=== PATIENT | female | born 1990 | race Two or more races ===

== ENCOUNTER 2018-05-12 21:19 | Emergency (ER) | payer MEDICAID ==
[~2018-05-12] VITALS: Ht 170.2 cm; Wt 81.6 kg
[2018-05-12 21:42] VITALS: BP 119/99
--- NOTE | 2018-05-12 21:51 | Emergency Room Report ---
History of Present Illness General Chief Complaint: Allergies Source: Patient Present Illness HPI Patient presents with hives, and itching throat and difficulty passing saliva. She also feels herself wheezing. She has a history of asthma. She never had allergy before. She was running and started developing hives and shortness of breath. She did not hear herself wheezing. No new soaps, clothes, unusual foods, travel or infectious exposure. No chest pain, fever, productive cough, sore throat. No NVD, dysuria. No dizziness. Some anxiety with symptoms. LNMP 04/13 irregular - Depo Initially she denied prior allergies, then Mom reports had allergy treatment as a child with desensitization shots. Not know what was allergic to. Allergies: Coded Allergies: TREE NUT (Verified Allergy, Unknown, 05/12/18) Patient History Past Medical History: see triage record, other - childhood allergy treatment Social History: Denies: smoking Social History Narrative with Mom Last Menstrual Period: 04/13/18 Now: No Reviewed Nursing Documentation: PMH: Agreed; PSxH: Agreed Nursing Documentation-PMH Hx Asthma: Yes Review of Systems All Other Systems: negative except mentioned in HPI Physical Exam Vital Signs Date Time Temp Pulse Resp B/P (MAP) Pulse Ox O2 Delivery O2 Flow Rate FiO2 05/12/18 21:22 98.0 88 18 119/99 98 Room Air 98.1 Sp02 EP Interpretation: reviewed, normal General Appearance: well appearing, no apparent distress, GCS 15 Head: normocephalic Eyes: bilateral eye normal inspection, bilateral eye PERRL ENT: normal pharynx, no angioedema, moist mucus membranes Neck: supple Respiratory: lungs clear, normal breath sounds Cardiovascular #1: regular rate, rhythm Cardiovascular #2: 2+ radial (R) Gastrointestinal: normal inspection, normal bowel sounds, non tender, no mass, non-distended Musculoskeletal: back normal, gait/station normal, normal range of motion, no calf tenderness Neurologic: alert, oriented x3, grossly normal Psychiatric: mood/affect normal Skin: warm/dry, other - fine hiv-like rash central Medical Decision Making Diagnostic Impression: Primary Impression: Allergic reaction Qualified Codes: T78.40XA - Allergy, unspecified, initial encounter ER Course Patient presents with itching throat, some dyspnea and skin itching. Ddx: anaphylaxis, allergic reaction, anxiety, asthma amongst others. Due to symptom complex, treating with epi IM, solumedrol and benadryl. shelter monitor. Prior allergy history during childhood. UA clear, preg neg. Improved with treatment. Discussed need for allergy testing. At this time, epi pen not indicated. Patient stable for outpatient observation and treatment. Laboratory Tests Test 05/13/18 00:03 Urine Color Pale yellow Urine Appearance Slightly cloudy Urine pH 6 (4.5-8.0) Urine Specific [place] 1.015 (1.005-1.035) Urine Protein Negative (NEGATIVE) Urine Glucose (UA) Negative (NEGATIVE) Urine Ketones Negative (NEGATIVE) Urine Occult Blood Negative (NEGATIVE) Urine Nitrite Negative (NEGATIVE) Urine Bilirubin Negative (NEGATIVE) Urine Urobilinogen Normal MG/DL (0.0-1.0) Urine Leukocyte Esterase 1+ (NEGATIVE) H Urine RBC 0-2 /HPF (0 - 2) Urine WBC 2-4 /HPF (0 - 2) Urine Squamous Epithelial Cells Many /LPF (NONE/OCC) H Urine Calcium Oxalate Crystals Many /LPF (NONE) Urine Bacteria Many /HPF (NONE) H Urine HCG, Qualitative Negative (NEGATIVE) Rhythm Strip Diag. Results EP Interpretation: yes Rhythm: NSR, no PVC's, no ectopy Last Vital Signs Date Time Temp Pulse Resp B/P (MAP) Pulse Ox O2 Delivery O2 Flow Rate FiO2 05/13/18 00:03 98.1 24 127/76 100 Room Air 21 98.1 05/12/18 22:05 88 Status: improved Disposition: HOME, SELF-CARE Condition: Improved Scripts Albuterol Sulfate* (ALBUTEROL SULFATE MDI*) 8.5 Gm Hfa.aer.ad 2 PUFF INH Q6H, #1 EA 0 Refills Prov: Solomon William M.D. 05/12/18 Diphenhydramine Hcl* (BENADRYL*) 25 Mg Capsule 25 MG ORAL Q6H PRN for Itching, #14 CAP Prov: Solomon William M.D. 05/12/18 Prednisone* (PREDNISONE*) 20 Mg Tablet 40 MG ORAL DAILY, #10 TAB Prov: Solomon William M.D. 05/12/18 Solomon William M.D. May 12, 2018 21:51
[2018-05-12] MEDS ORDERED: EPINEPHrine 1mg/1ml Amp IM ONE (22:00)
[2018-05-12] MEDS ORDERED: DiphenhydrAMINE 50mg/ml Inj IVP ONE (22:00)
[2018-05-12] MEDS ORDERED: Albuterol ud Inhalation HHN ONE (22:00)
[2018-05-12] MEDS ORDERED: Solu-MEDROL 125mg Inj IVP ONE (22:00)
[2018-05-12] MEDS ORDERED: EPINEPHrine 1mg/1ml Amp ONE (22:16)
[2018-05-12] MEDS ORDERED: BENADRYL25 MG ORAL (23:30)
[2018-05-12] MEDS ORDERED: PREDNISONE20 MG ORAL (23:30)
[2018-05-12] MEDS ORDERED: ALBUTEROL SULF8.5 GM INH (23:30)
[2018-05-13 00:01] VITALS: BP 122/76
[2018-05-13 00:03] VITALS: BP 127/76
[2018-05-13 00:20] LABS: BILIRUBIN, URINE NEGATIVE (NEGATIVE); COLOR,URINE PALE YELLOW; GLUCOSE, URINE (UA) NEGATIVE (NEGATIVE); KETONES,URINE NEGATIVE (NEGATIVE); LEUKOCYTE ESTERASE ,URINE 1+ (NEGATIVE); NITRITE,URINE NEGATIVE (NEGATIVE); PH,URINE 6 (4.5-8.0); PROTEIN,URINE NEGATIVE (NEGATIVE); UROBILINOGEN,URINE NORMAL MG/DL (0.0-1.0)
[2018-05-13 00:30] LABS: APPEARANCE,URINE SLIGHTLY CLOUDY
== END 2018-05-13 00:35 | disposition home or self-care (01) ==
LOC: EMR 22:00
DX: T78.40XA Allergy, unspecified, initial encounter (principal); X58.XXXA Exposure to other specified factors, initial encounter; R21 Rash and other nonspecific skin eruption; J45.909 Unspecified asthma, uncomplicated
CPT/HCPCS: 81003; 81025; 87086; 94640; 94664; 96361; 96372; 96374; 96375; 99283; J0171; J1200; J2930

== ENCOUNTER 2020-04-16 12:37 | Emergency (ER) | payer MEDICAID, OTHER ==
[~2020-04-16] VITALS: Ht 170.2 cm; Wt 86.2 kg
[~2020-04-16 12:37] MED LIST: ALBUTEROL SULF8.5 GM INH; BENADRYL25 MG ORAL; PREDNISONE20 MG ORAL
[2020-04-16 12:43] VITALS: BP 127/87
[2020-04-16] MEDS ORDERED: Pantoprazole Inj IVP ONE (13:00)
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
[2020-04-16 13:10] LABS: BASOPHILS % (AUTO) 0.4 % (0.0-2.0); EOSINOPHILS % (AUTO) 0.1 % (0.0-3.0); HEMATOCRIT 49.1 % (37.0-47.0); HEMOGLOBIN 15.7 G/DL (12.0-16.0); LYMPHOCYTES % (AUTO) 12.7 % (20.0-45.0); MEAN CORPUSCULAR VOLUME 96 FL (80-99); MONOCYTES % (AUTO) 5.6 % (1.0-10.0); NEUTROPHILS % (AUTO) 81.2 % (45.0-75.0); PLATELET COUNT 180 K/UL (150-450); RED CELL DISTRIBUTION WIDTH 11.4 % (11.6-14.8); WHITE BLOOD COUNT 6.2 K/UL (4.8-10.8)
[2020-04-16 13:24] LABS: APPEARANCE,URINE SLIGHTLY CLOUDY; BILIRUBIN, URINE 1+ (NEGATIVE); GLUCOSE, URINE (UA) NEGATIVE (NEGATIVE); KETONES,URINE 1+ (NEGATIVE); LEUKOCYTE ESTERASE ,URINE 1+ (NEGATIVE); NITRITE,URINE NEGATIVE (NEGATIVE); PH,URINE 6 (4.5-8.0); PROTEIN,URINE 2+ (NEGATIVE); UROBILINOGEN,URINE NORMAL MG/DL (0.0-1.0)
[2020-04-16 13:27] LABS: COLOR,URINE YELLOW
[2020-04-16 13:44] LABS: ANION GAP 11 mmol/L (5-15); BLOOD UREA NITROGEN 8 mg/dL (7-18); CALCIUM 8.5 MG/DL (8.5-10.1); CARBON DIOXIDE 24 MMOL/L (21-32); CHLORIDE 104 MMOL/L (98-107); CREATININE 1.1 MG/DL (0.55-1.30); POTASSIUM 3.3 MMOL/L (3.5-5.1); SODIUM 139 MMOL/L (136-145)
[2020-04-16 13:48] LABS: ALANINE AMINOTRANSFERASE 16 U/L (12-78); ALBUMIN 3.8 G/DL (3.4-5.0); ALKALINE PHOSPHATASE 64 U/L (46-116); ASPARTATE AMINO TRANSFERASE 14 U/L (15-37); BILIRUBIN,TOTAL 0.4 MG/DL (0.2-1.0)
--- NOTE | 2020-04-16 14:08 | Diagnostic Imaging Report ---
EXAM: CT Abdomen and Pelvis Without Intravenous Contrast CLINICAL HISTORY: ABD PAIN TECHNIQUE: Axial computed tomography images of the abdomen and pelvis without intravenous contrast. CTDI is 8.6 mGy and DLP is 461.7 mGy-cm. One or more of the following dose reduction techniques were used: automated exposure control, adjustment of the mA and/or kV according to patient size, use of iterative reconstruction technique. COMPARISON: No relevant prior studies available. FINDINGS: Lung bases demonstrate no acute infiltrate. The liver, biliary tree, pancreas, spleen, kidneys, and adrenal glands are unremarkable for noncontrast technique. No bowel obstruction or perforation. The appendix is unremarkable. Small amount of free pelvic fluid may be physiologic. No abdominal aortic aneurysm. No acute fracture. IMPRESSION: Unremarkable noncontrast CT abdomen and pelvis
[2020-04-16] MEDS ORDERED: PROTONIX40 MG ORAL (14:09)
[2020-04-16] MEDS ORDERED: ZOFRAN4 M3 ORAL (14:09)
[2020-04-16 14:24] VITALS: BP 127/87
== END 2020-04-16 14:24 | disposition home or self-care (01) ==
LOC: EMR 13:00
DX: R10.9 Unspecified abdominal pain (principal); Z91.018 Allergy to other foods; F12.90 Cannabis use, unspecified, uncomplicated; E66.3 Overweight; Z68.29 Body mass index [BMI] 29.0-29.9, adult
CPT/HCPCS: 36415; 74176; 80053; 81003; 81025; 83690; 83735; 85025; 96361; 96374; 96375; J2405; J7030; S0164; Z7502; 99284; J8499

== ENCOUNTER 2020-07-22 17:17 | Emergency (ER) | payer MEDICAID, OTHER ==
[~2020-07-22] VITALS: Ht 170.2 cm; Wt 86.2 kg
[~2020-07-22 17:17] MED LIST changes: +PROTONIX40 MG ORAL; +ZOFRAN4 M3 ORAL
[2020-07-22] MEDS ORDERED: Morphine Sulfate 2mg/ml Inj(IV/IM USE ONLY) IVP ONE ×2 (17:45→18:30)
[2020-07-22] MEDS ORDERED: Omnipaque-300 100ml vial INJ PRN (17:45)
[2020-07-22 17:47] VITALS: BP 124/86
[2020-07-22 18:03] LABS: ANION GAP 9 mmol/L (5-15); BLOOD UREA NITROGEN 9 mg/dL (7-18); CALCIUM 8.9 MG/DL (8.5-10.1); CARBON DIOXIDE 25 MMOL/L (21-32); CHLORIDE 104 MMOL/L (98-107); CREATININE 0.9 MG/DL (0.55-1.30); POTASSIUM 3.4 MMOL/L (3.5-5.1); SODIUM 138 MMOL/L (136-145)
[2020-07-22 18:08] LABS: ALANINE AMINOTRANSFERASE 68 U/L (12-78); ALBUMIN 4.5 G/DL (3.4-5.0); ALBUMIN/GLOBULIN RATIO 1.6 (1.0-2.7); ALKALINE PHOSPHATASE 70 U/L (46-116); ASPARTATE AMINO TRANSFERASE 161 U/L (15-37); BILIRUBIN,TOTAL 0.7 MG/DL (0.2-1.0)
[2020-07-22 18:12] LABS: HEMATOCRIT 43.2 % (37.0-47.0); HEMOGLOBIN 13.9 G/DL (12.0-16.0); MEAN CORPUSCULAR VOLUME 95 FL (80-99); PLATELET COUNT 203 K/UL (150-450); RED BLOOD COUNT 4.57 M/UL (4.20-5.40); RED CELL DISTRIBUTION WIDTH 11.9 % (11.6-14.8); WHITE BLOOD COUNT 18.3 K/UL (4.8-10.8)
--- NOTE | 2020-07-22 18:22 | Diagnostic Imaging Report ---
EXAM: XR Chest, 1 View CLINICAL HISTORY: ABD PAIN TECHNIQUE: Frontal view of the chest. COMPARISON: No previous study. FINDINGS: Lungs: No consolidative change. Pleural space: No pleural effusion. No pneumothorax. Heart: Cardiomediastinal silhouette unremarkable. Mediastinum: See above. Bones/joints: Ribs are unremarkable. Other findings: Mild hypoaeration. IMPRESSION: No active disease.
--- NOTE | 2020-07-22 19:26 | Emergency Room Report ---
History of Present Illness General Chief Complaint: Abdominal Pain Source: Patient Present Illness HPI 29-year-old female with history of asthma currently controlled here complaining of acute onset of right upper quadrant abdominal pain with radiation to chest with few bouts of nonbloody emesis. Denies diarrhea however complains of constipation. Also reports that the pain is now radiating to epigastric area and is guarding upon palpation of the epigastric area. Denies any fever and chills, cough and congestion. Reports that the pain is making her short of breath. Denies any pleuritic chest pain. Denies any fall or injury, alcohol intake, drug use or tobacco smoke. Patient is crying upon arrival reporting that she has a 10 out of 10 pain in the abdomen. Denies . 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 Patient History Past Medical History: see triage record Past Surgical History: none Pertinent Family History: none Now: No Immunizations: UTD Reviewed Nursing Documentation: PMH: Agreed; PSxH: Agreed Nursing Documentation-PMH Past Medical History: No Stated History Hx Asthma: Yes Review of Systems All Other Systems: negative except mentioned in HPI Physical Exam Vital Signs Date Time Temp Pulse Resp B/P (MAP) Pulse Ox O2 Delivery O2 Flow Rate FiO2 07/22/20 17:44 98.8 98 24 124/86 (99) 95 Sp02 EP Interpretation: reviewed, normal General Appearance: mild distress Head: normocephalic, atraumatic Eyes: bilateral eye normal inspection, bilateral eye PERRL ENT: hearing grossly normal, normal pharynx, no angioedema, normal voice Neck: full range of motion, supple/symm/no masses Respiratory: chest non-tender, lungs clear, normal breath sounds, no rhonchi, speaking full sentences Cardiovascular #1: no edema, no murmur Cardiovascular #2: 2+ carotid (R), 2+ carotid (L), 2+ radial (R), 2+ radial (L) Gastrointestinal: no mass, no organomegaly, no peritonitis, no bruit, non- distended, no hernia, no pulsatile mass, no rebound, guarding - Epigastric and right upper quadrant however Collazo's is negative Rectal: deferred Genitourinary: no CVA tenderness Musculoskeletal: back normal, no calf tenderness Neurologic: alert, motor strength/tone normal, oriented x3, sensory intact, responsive, speech normal Psychiatric: judgement/insight normal, memory normal, mood/affect normal, no suicidal/homicidal ideation Skin: no rash Lymphatic: no adenopathy Medical Decision Making PA Attestation ALL Diagnosis and treatment plan reviewed and discussed with my supervising physician Dr. Villagran Diagnostic Impression: Primary Impression: Fatty liver Additional Impressions: Renal calculi Abdominal pain Constipation UTI (urinary tract infection) ER Course 29-year-old female with history of asthma currently controlled here complaining of acute onset of right upper quadrant abdominal pain with radiation to chest with few bouts of nonbloody emesis. Denies diarrhea however complains of constipation. Also reports that the pain is now radiating to epigastric area and is guarding upon palpation of the epigastric area. Denies any fever and chills, cough and congestion. Reports that the pain is making her short of breath. Denies any pleuritic chest pain. Denies any fall or injury, alcohol intake, drug use or tobacco smoke. Patient is crying upon arrival reporting that she has a 10 out of 10 pain in the abdomen. Denies . Ddx considered but are not limited to: appendicitis, cholecystis, gastritis, gastroenteritis, UTI, pyelonephritis, SBO, diverticulitis, influenza with GI manifestation, DE, complication with Vital signs: are WNL, pt. is afebrile H&PE are most consistent with: Fatty liver, renal calculi, abdominal pain, constipation, UTI ORDERS: abdominal CT, abdominal pain set, EKG, Zofran, Pepcid, Tylenol, colace, Keflex ED INTERVENTIONS: Morphine, Zofran, NS bolus, Pepcid DISCHARGE: At this time pt. is stable for d/c to home. Will provide printed patient care instructions, and any necessary prescriptions. Care plan and follow up instructions have been discussed with the patient prior to discharge. Increase oral hydration, increase fiber intake, take medication as directed, if worsening symptom return to the emergency room follow-up with primary care provider EKG Diagnostic Results Rate: normal Rhythm: NSR ST Segments: no acute changes Other Impression No acute ST changes Chest X-Ray Diagnostic Results Chest X-Ray Diagnostic Results : Chest X-Ray Ordered: Yes # of Views/Limited/Complete: 1 View Indication: Shortness of Breath EP Interpretation: Yes PA Xray: Interpretation reviewed, by supervising MD, and agrees with findings. Interpretation: no consolidation, no effusion, no pneumothorax Impression: No acute disease Electronically Signed by: Geovani Best PA-C CT/MRI/US Diagnostic Results CT/MRI/US Diagnostic Results : Imaging Test Ordered: CT chest abdomen pelvis Impression Final Report EXAM: CT Abdomen and Pelvis With Intravenous Contrast CLINICAL HISTORY: PAIN TECHNIQUE: Axial computed tomography images of the abdomen and pelvis with intravenous contrast. CTDI is 9.80 mGy and DLP is 510.10 mGy-cm. One or more of the following dose reduction techniques were used: automated exposure control, adju stment of the mA and/or kV according to patient size, use of iterative reconstruction technique. COMPARISON: 04/16/2020. FINDINGS: Limitations: Limited evaluation due to some motion artifact could Lung bases: Unremarkable. No mass. No consolidation. ABDOMEN: Liver: Diffuse fatty infiltration of the liver is noted. The liver and the spleen enhance uniformly. Gallbladder and bile ducts: See below. Pancreas: See below. Spleen: See above. Adrenals: The adrenal glands, the head, body, tail of the pancreas and the gallbladder are unremarkable. Kidneys and ureters: Both kidneys are shown to excrete contrast bilaterally. 0.2 cm nonobstructing calculus mid to lower pole region of the right kidney. Stomach and bowel: Under distended fluid-filled stomach. Moderate quantity of stool throughout the colon. No evidence of bowel obstruction. No mucosal thickening. PELVIS: Appendix: Appendix is seen on coronal image 25 and is unremarkable. Bladder: The bladder is underdistended. Reproductive: The uterus and ovaries are unremarkable per ABDOMEN and PELVIS: Intraperitoneal space: Minimal free fluid within the pelvis. No free air. Bones/joints: Vacuum disc at the L4-5 level. No spondylolysis or spinal listhesis. Sacrum and coccyx are unremarkable. No acute fracture. No disloc ation. Soft tissues: Ischiorectal fat is clean. Vasculature: Flow is demonstrated within the celiac, SMA, the renal arteries, an d RAY. No abdominal aortic aneurysm. Lymph nodes: No retroperitoneal lymphadenopathy. No pelvic or inguinal lymphadenopathy. Scattered subcentimeter retroperitoneal lymph nodes. IMPRESSION: 1. Fatty infiltration of the liver. 2. Nonobstructing right renal calculus. 3. Appendix is unremarkable. 4. No evidence of bowel obstruction. 5. Minimal free fluid within the pelvis. 6. Gallbladder is unremarkable. EXAM: CT Chest With Intravenous Contrast CLINICAL HISTORY: PAIN TECHNIQUE: Axial computed tomography images of the chest with intravenous contrast. CTDI is 7.70 mGy and DLP is 328.80 mGy-cm. One or more of the following dose reduction techniques were used: automated exposure control, adjustment of the mA and/or kV according to patient size, use of iterative reconstruction technique. COMPARISON: Earlier plain film of the chest study of 07/22/2020 FINDINGS: Lungs: Evaluation of the right pulmonary parenchyma reveals minimal subsegmental atelectasis at the right lung base. Evaluation of the left pulmonary parenchyma reveals minimal subsegmental atelectasis at the left lung base. The airways patent. Pleural space: Unremarkable. No pneumothorax. No significant effusion. Heart: The heart is normal in size. No significant pericardial effusion. Thyroid: The thyroid gland is unremarkable. Bones/joints: Mild degenerative disc disease of the spinal:. No acute fracture. No dislocation. Soft tissues: Unremarkable. Vasculature: Thoracic aorta is unremarkable. Central pulmonary arteries are unremarkable. Peripheral pulmonary arteries are grossly unremarkable. No thoracic aortic aneurysm. Lymph nodes: Unremarkable. No enlarged lymph nodes. IMPRESSION: 1. No significant abnormalities detected. 2. No central or peripheral pulmonary emboli detected. 3. Heart is normal in size. Last Vital Signs Date Time Temp Pulse Resp B/P (MAP) Pulse Ox O2 Delivery O2 Flow Rate FiO2 07/22/20 18:25 98.8 07/22/20 17:47 98 24 124/86 95 Disposition: HOME, SELF-CARE Condition: Stable Scripts Acetaminophen* (TYLENOL EXTRA STRENGTH*) 500 Mg Tablet 500 MG ORAL Q8H PRN for Prn Headache/Temp > 101, #30 TAB 0 Refills Prov: Geovani Silva 07/22/20 Famotidine* (Pepcid 20mg tablet*) 20 Mg Tablet 20 MG ORAL DAILY, #30 TAB 0 Refills Prov: Geovani Silva 07/22/20 Ondansetron (Zofran) 4 Mg Tablet 4 MG ORAL Q6H PRN for Nausea & Vomiting, #14 TAB Prov: Geovani Silva 07/22/20 Docusate Sodium* (COLACE*) 100 Mg Capsule 100 MG ORAL DAILY, #14 CAP Prov: Geovani Silva 07/22/20 Referrals: [facility],REFERRING (PCP) Patient Instructions: Abdominal Pain, Adult, Fatty Liver, Kidney Stones, [id number], Urinary Tract Infection, [id number] Additional Instructions: Increase oral hydration, increase fiber intake, take medication as directed, if worsening symptom return to the emergency room follow-up with primary care provider. Follow-up with urologist regarding renal stone Geovani Silva Jul 22, 2020 19:26
[2020-07-22] MEDS ORDERED: Morphine Sulfate 4mg/ml Inj (IV USE ONLY) IVP ONE (19:45)
--- NOTE | 2020-07-22 19:47 | Diagnostic Imaging Report ---
EXAM: CT Abdomen and Pelvis With Intravenous Contrast CLINICAL HISTORY: PAIN TECHNIQUE: Axial computed tomography images of the abdomen and pelvis with intravenous contrast. CTDI is 9.80 mGy and DLP is 510.10 mGy-cm. One or more of the following dose reduction techniques were used: automated exposure control, adjustment of the mA and/or kV according to patient size, use of iterative reconstruction technique. COMPARISON: 04/16/2020. FINDINGS: Limitations: Limited evaluation due to some motion artifact could Lung bases: Unremarkable. No mass. No consolidation. ABDOMEN: Liver: Diffuse fatty infiltration of the liver is noted. The liver and the spleen enhance uniformly. Gallbladder and bile ducts: See below. Pancreas: See below. Spleen: See above. Adrenals: The adrenal glands, the head, body, tail of the pancreas and the gallbladder are unremarkable. Kidneys and ureters: Both kidneys are shown to excrete contrast bilaterally. 0.2 cm nonobstructing calculus mid to lower pole region of the right kidney. Stomach and bowel: Under distended fluid-filled stomach. Moderate quantity of stool throughout the colon. No evidence of bowel obstruction. No mucosal thickening. PELVIS: Appendix: Appendix is seen on coronal image 25 and is unremarkable. Bladder: The bladder is underdistended. Reproductive: The uterus and ovaries are unremarkable per ABDOMEN and PELVIS: Intraperitoneal space: Minimal free fluid within the pelvis. No free air. Bones/joints: Vacuum disc at the L4-5 level. No spondylolysis or spinal listhesis. Sacrum and coccyx are unremarkable. No acute fracture. No dislocation. Soft tissues: Ischiorectal fat is clean. Vasculature: Flow is demonstrated within the celiac, SMA, the renal arteries, and RAY. No abdominal aortic aneurysm. Lymph nodes: No retroperitoneal lymphadenopathy. No pelvic or inguinal lymphadenopathy. Scattered subcentimeter retroperitoneal lymph nodes. IMPRESSION: 1. Fatty infiltration of the liver. 2. Nonobstructing right renal calculus. 3. Appendix is unremarkable. 4. No evidence of bowel obstruction. 5. Minimal free fluid within the pelvis. 6. Gallbladder is unremarkable. EXAM: CT Chest With Intravenous Contrast CLINICAL HISTORY: PAIN TECHNIQUE: Axial computed tomography images of the chest with intravenous contrast. CTDI is 7.70 mGy and DLP is 328.80 mGy-cm. One or more of the following dose reduction techniques were used: automated exposure control, adjustment of the mA and/or kV according to patient size, use of iterative reconstruction technique. COMPARISON: Earlier plain film of the chest study of 07/22/2020 FINDINGS: Lungs: Evaluation of the right pulmonary parenchyma reveals minimal subsegmental atelectasis at the right lung base. Evaluation of the left pulmonary parenchyma reveals minimal subsegmental atelectasis at the left lung base. The airways patent. Pleural space: Unremarkable. No pneumothorax. No significant effusion. Heart: The heart is normal in size. No significant pericardial effusion. Thyroid: The thyroid gland is unremarkable. Bones/joints: Mild degenerative disc disease of the spinal:. No acute fracture. No dislocation. Soft tissues: Unremarkable. Vasculature: Thoracic aorta is unremarkable. Central pulmonary arteries are unremarkable. Peripheral pulmonary arteries are grossly unremarkable. No thoracic aortic aneurysm. Lymph nodes: Unremarkable. No enlarged lymph nodes. IMPRESSION: 1. No significant abnormalities detected. 2. No central or peripheral pulmonary emboli detected. 3. Heart is normal in size.
[2020-07-22 20:03] LABS: APPEARANCE,URINE CLEAR; BILIRUBIN, URINE NEGATIVE (NEGATIVE); COLOR,URINE PALE YELLOW; GLUCOSE, URINE (UA) NEGATIVE (NEGATIVE); KETONES,URINE NEGATIVE (NEGATIVE); LEUKOCYTE ESTERASE ,URINE 1+ (NEGATIVE); NITRITE,URINE NEGATIVE (NEGATIVE); PH,URINE 5 (4.5-8.0); PROTEIN,URINE NEGATIVE (NEGATIVE); UROBILINOGEN,URINE NORMAL MG/DL (0.0-1.0)
[2020-07-22] MEDS ORDERED: TYLENOL EXTRA500 MG ORAL (20:07)
[2020-07-22] MEDS ORDERED: FAMOTIDINE20 MG ORAL (20:07)
[2020-07-22] MEDS ORDERED: COLACE100 MG ORAL (20:07)
[2020-07-22] MEDS ORDERED: ZOFRAN4 M1 ORAL (20:07)
[2020-07-22] MEDS ORDERED: CEPHALEXIN500 MG ORAL (20:09)
[2020-07-22 20:51] VITALS: BP 129/61
[2020-07-23] MEDS ORDERED: CEPHALEXIN500 MG ORAL ×3 (07:33→07:35)
--- NOTE | 2020-07-24 14:51 | Cardiology Report ---
APPROVED REPORT EKG Measurement Heart [id number] <Conclusion> Normal sinus rhythm Normal ECG
== END 2020-07-22 20:51 | disposition home or self-care (01) ==
LOC: EMR 17:50
DX: K76.0 Fatty (change of) liver, not elsewhere classified (principal); N20.0 Calculus of kidney; R10.11 Right upper quadrant pain; K59.00 Constipation, unspecified; N39.0 Urinary tract infection, site not specified; J45.909 Unspecified asthma, uncomplicated; Z91.018 Allergy to other foods; Z79.899 Other long term (current) drug therapy
CPT/HCPCS: 36415; 71045; 71260; 74177; 80053; 80307; 81003; 83690; 84484; 84703; 85007; 85025; 85610; 85730; 86850; 86900; 86901; 93005; 96361; 96374; 96375; 96376; G0480; J2270; J2405; J7030; Q9965; Z7502; 99284